=== PATIENT | female | born 1990 | race Caucasian/White ===

== ENCOUNTER 2019-05-19 09:38 | Emergency (ER) | payer MEDICAID ==
[~2019-05-19] VITALS: Ht 170.2 cm; Wt 73.9 kg
--- NOTE | 2019-05-19 09:50 | NUR ---
Taylor hernandez in ED - 05/19/19 at 1013 by DONNA PT TAKEN TO CT VIA WHEELCHAIR
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
--- NOTE | 2019-05-19 09:55 | NUR ---
AWAITING FOR MD RDZ
--- NOTE | 2019-05-19 10:05 | NUR ---
PT TAKEN TO CT VIA WHEELCHAIR
--- NOTE | 2019-05-19 10:15 | NUR ---
PT BACK FROM CT
--- NOTE | 2019-05-19 10:35 | NUR ---
Patient discharged to home in stable condition. Written and verbal after care instructions given. Patient verbalizes understanding of instruction.
[2019-05-19 10:36] VITALS: BP 124/81
== END 2019-05-19 10:37 | disposition home or self-care (01) ==
LOC: ER 09:50
DX: S43.492A Other sprain of left shoulder joint, initial encounter (principal); S09.8XXA Other specified injuries of head, initial encounter; Y08.89XA Assault by other specified means, initial encounter; Y93.89 Activity, other specified; Y92.89 Other specified places as the place of occurrence of the external cause; Y99.8 Other external cause status
CPT/HCPCS: 70450-TC; 73030-TC

== ENCOUNTER 2019-07-21 14:07 | Emergency (ER) | payer OTHER, MEDICAID ==
[~2019-07-21] VITALS: Ht 170.2 cm; Wt 68.0 kg
--- NOTE | 2019-07-21 15:30 | NUR ---
PRURITUS- GENERALIZED- HAPPENED LAST NIGHT; TOOK PO BENADRYL
[2019-07-21] MEDS ORDERED: predniSONE 20 MG TABLET ONE (15:51)
[2019-07-21] MEDS ORDERED: FAMOTIDINE (20 MG) 20 MG TABLET ONE (15:51)
[2019-07-21 15:52] LABS: BILIRUBIN,URINE Negative (NEGATIVE); BLOOD, URINE Small Ery/uL (NEGATIVE); COLOR,URINE Yellow (YELLOW); KETONES,URINE Negative (NEGATIVE); LEUKOCYTE ESTERASE ,URINE Negative (NEGATIVE); NITRITE, URINE Negative (NEGATIVE); PH,URINE 5.5 (5.0-8.0); PROTEIN,URINE Trace mg/dl (NEGATIVE); UGLUCOSE Negative (NEGATIVE); UROBILINOGEN,URINE 0.2 EU/dL (0.2)
[2019-07-21 15:53] LABS: APPEARANCE,URINE CLOUDY (CLEAR)
[2019-07-21 15:58] LABS: BACTERIA,URINE None seen /HPF (None Seen); SQUAMOUS EPITHELIAL CELL,UR Many /HPF (None Seen); URINE AMORPHOUS URATE Moderate /HPF (None Seen); WBC,URINE 0-1 /HPF (0-3)
[2019-07-21] MEDS ORDERED: predniSONE 20 MG TABLET PO ONE (16:00)
[2019-07-21] MEDS ORDERED: FAMOTIDINE (20 MG) 20 MG TABLET PO ONE (16:00)
[2019-07-21 16:51] VITALS: BP 112/68
--- NOTE | 2019-07-21 16:51 | NUR ---
Patient discharged to home in stable condition. Written and verbal after care instructions given. Patient verbalizes understanding of instruction and RX. PT ambulatory with a steady gait.
== END 2019-07-21 16:51 | disposition home or self-care (01) ==
LOC: ER 14:11
DX: T78.40XA Allergy, unspecified, initial encounter (principal); F41.9 Anxiety disorder, unspecified; N89.8 Other specified noninflammatory disorders of vagina; R11.0 Nausea; Z76.0 Encounter for issue of repeat prescription; F32.9 Major depressive disorder, single episode, unspecified; X58.XXXA Exposure to other specified factors, initial encounter
CPT/HCPCS: 81001; 84703; 87491; 87591; 99283; J7512; 81000-TC

== ENCOUNTER 2019-07-24 12:11 | Emergency (ER) | payer OTHER, MEDICAID ==
[~2019-07-24] VITALS: Ht 167.6 cm; Wt 70.3 kg
[2019-07-24 12:40] VITALS: BP 125/70
== END 2019-07-24 15:10 | disposition home or self-care (01) ==
LOC: ER 12:13
DX: L29.9 Pruritus, unspecified (principal); Z76.0 Encounter for issue of repeat prescription; F32.9 Major depressive disorder, single episode, unspecified; F41.9 Anxiety disorder, unspecified